=== PATIENT | male | born 1955 | race Caucasian/White ===

== ENCOUNTER 2020-09-11 07:52 | Observation (INO) | payer OTHER ==
[~2020-09-11] VITALS: Ht 175.3 cm; Wt 106.1 kg
[2020-09-11] MEDS ORDERED: METO100 PO (08:02)
[2020-09-11] MEDS ORDERED: ALLO300 PO (08:02)
[2020-09-11] MEDS ORDERED: Aspir 8181 MG PO (08:02)
[2020-09-11] MEDS ORDERED: EPLE25 PO (08:02)
[2020-09-11] MEDS ORDERED: Catapres0.2 MG PO (08:02)
[2020-09-11] MEDS ORDERED: GABA800 PO (08:02)
[2020-09-11] MEDS ORDERED: LISI20 PO (08:02)
[2020-09-11] MEDS ORDERED: METF500 PO (08:02)
[2020-09-11] MEDS ORDERED: TAMS.4ER PO (08:03)
[2020-09-11 08:17] LABS: BASOPHILS PERCENT AUTO 1 % (0-2); EOSINOPHILS ABSOLUTE AUTO 0.36 K/mm3 (0.00-0.68); EOSINOPHILS PERCENT AUTO 3 % (0-6); Hematocrit 45.3 % (37.0-53.0); Hemoglobin 15.5 g/dL (13.5-17.5); IMMATURE GRAN ABSOLUTE AUTO 0.06 K/mm3 (0.00-0.10); IMMATURE GRAN PERCENT AUTO 0 % (0-1); LYMPHOCYTES ABSOLUTE AUTO 2.08 K/mm3 (0.84-5.20); LYMPHOCYTES PERCENT AUTO 15 % (21-46); MONOCYTES ABSOLUTE AUTO 0.95 K/mm3 (0.16-1.47); MONOCYTES PERCENT AUTO 7 % (4-13); Mean Corpuscular HGB 32.2 pg (26.0-34.0); Mean Corpuscular HGB Conc 34.2 g/dL (31.5-36.5); Mean Corpuscular Volume 94 fL (80-100); Mean Platelet Volume 10.3 fL (9.1-12.4); NEUTROPHILS ABSOLUTE AUTO 10.15 K/mm3 (1.96-9.15); NEUTROPHILS PERCENT AUTO 74 % (41-73); Platelet Count 288 K/mm3 (150-400); RDW Standard Deviation 45.3 fL (35.1-46.3); Red Blood Cell Count 4.81 M/mm3 (4.30-5.90)
[2020-09-11 08:37] LABS: Alanine Aminotransfer (ALT/SGP 30 U/L (12-78); Albumin, Blood 3.9 g/dL (3.4-5.0); Albumin/Globulin Ratio 1.1 (0.8-1.8); Alk Phos 94 U/L (50-136); Anion Gap 3 mmol/L (6-16); Aspartate Aminotrans (AST/SGOT 15 U/L (12-37); Bilirubin, Total 0.4 mg/dL (0.1-1.0); Blood Urea Nitrogen 24 mg/dL (8-24); Bun/Creatinine Ratio 24.4 (12.0-20.0); CO2, Blood 31 mmol/L (21-32); Calcium, Blood 9.5 mg/dL (8.5-10.1); Chloride, Blood 103 mmol/L (98-108); Creatinine, Blood 0.99 mg/dL (0.60-1.20); Globulin, Blood 3.7 g/dL (2.2-4.0); Glomerular Filtration Rate >60 (60-); Glucose, Blood 155 mg/dL (70-99); Sodium, Blood 137 mmol/L (136-145); Total Protein, Blood 7.6 g/dL (6.4-8.2)
[2020-09-11 11:30] LABS: Source, Urine Clean Catch
[2020-09-11 11:37] LABS: Appearance, Urine Clear (Clear); Bilirubin, Urine Neg (Neg); Blood, Urine Neg (Neg); Color, Urine Yellow (P-Yellow); Glucose Qualitative, Urine Neg (Neg); Ketones, Urine Neg (Neg); Leukocyte Esterase, Urine Neg (Neg); Nitrite, Urine Neg (Neg); Protein, Urine Neg (Neg); Specific Gravity, Urine 1.015 (1.003-1.022); Urobilinogen, Urine NORM (Normal)
[2020-09-11 12:11] LABS: U Amphetamine Screen Not Detected; U Barbituate Screen Not Detected; U Benzodiazapine Screen Not Detected; U Buprenorphine Screen Not Detected; U Cannabinoids Screen Not Detected; U Cocaine Screen Not Detected; U Methadone Screen Not Detected; U Methamphetamine Screen Not Detected; U Opiates Screen Not Detected; U Oxycodone Screen Not Detected; U Phencyclidine Screen Not Detected; U Propoxyphene Screen Not Detected
--- NOTE | 2020-09-11 15:39 | NUR ---
DAUGHTER SPOKE WITH LEXA ON THE PHONE [phone] CALL IF ANYTHING IS NEEDED OR ANY CHANGES
--- NOTE | 2020-09-11 16:04 | NUR ---
SPOKE WITH MAHENDRA [phone]
--- NOTE | 2020-09-11 17:35 | NUR ---
SUMMARY PT ADMITTED FROM THE ER FOR CVA, PT ABLE TO STAND AND TRANSFER SELF FROM GURNEY TO THE BED, PT WITH R SIDE WEAKNESS, MORE NOTICEABLE IN THE ARM THAN IN THE LEG, PT OFTEN NEGLECTING THE R ARM, CAN MOVE IT IF HE THINKS ABOUT IT, PT HAS ALREADY WORKED WITH PT/OT TODAY, PT WITH DIFFICULTY FINDING HIS WORDS AT TIMES, THIS RN SPOKE WITH PT'S SPOUSE AND DAUGHTER ON THE PHONE, BOTH ARE WILLING TO WORK WITH DISCHARGE PLANNING TO GET THE PT HOME SAFELY POSSIBLE, CAMPUS RECRUITING COORDINATOR CONSULT PLACED, PT REMAINS WITH PERMISSIVE HYPERTENSION, NO COMPLAINTS, WILL CONTINUE TO MONITOR
[2020-09-12 05:09] LABS: BASOPHILS ABSOLUTE AUTO 0.11 K/mm3 (0.00-0.23); BASOPHILS PERCENT AUTO 1 % (0-2); EOSINOPHILS PERCENT AUTO 5 % (0-6); Hematocrit 42.9 % (37.0-53.0); Hemoglobin 14.8 g/dL (13.5-17.5); IMMATURE GRAN ABSOLUTE AUTO 0.03 K/mm3 (0.00-0.10); IMMATURE GRAN PERCENT AUTO 0 % (0-1); LYMPHOCYTES ABSOLUTE AUTO 2.34 K/mm3 (0.84-5.20); LYMPHOCYTES PERCENT AUTO 22 % (21-46); MONOCYTES ABSOLUTE AUTO 0.96 K/mm3 (0.16-1.47); MONOCYTES PERCENT AUTO 9 % (4-13); Mean Corpuscular HGB 32.5 pg (26.0-34.0); Mean Corpuscular HGB Conc 34.5 g/dL (31.5-36.5); Mean Corpuscular Volume 94 fL (80-100); Mean Platelet Volume 10.3 fL (9.1-12.4); NEUTROPHILS ABSOLUTE AUTO 6.49 K/mm3 (1.96-9.15); NEUTROPHILS PERCENT AUTO 62 % (41-73); Platelet Count 243 K/mm3 (150-400); RDW Standard Deviation 44.7 fL (35.1-46.3); Red Blood Cell Count 4.55 M/mm3 (4.30-5.90); White Blood Cell Count 10.43 K/mm3 (4.00-11.30)
[2020-09-12 05:42] LABS: Alanine Aminotransfer (ALT/SGP 29 U/L (12-78); Albumin, Blood 3.4 g/dL (3.4-5.0); Albumin/Globulin Ratio 1.1 (0.8-1.8); Alk Phos 76 U/L (50-136); Anion Gap 4 mmol/L (6-16); Aspartate Aminotrans (AST/SGOT 13 U/L (12-37); Bilirubin, Total 0.6 mg/dL (0.1-1.0); Blood Urea Nitrogen 18 mg/dL (8-24); Bun/Creatinine Ratio 17.8 (12.0-20.0); CHOL/HDL RATIO 6.6; CO2, Blood 27 mmol/L (21-32); Chloride, Blood 107 mmol/L (98-108); Cholesterol 172 mg/dL (50-200); Creatinine, Blood 1.01 mg/dL (0.60-1.20); Glomerular Filtration Rate >60 (60-); Glucose, Blood 122 mg/dL (70-99); HDL Cholesterol 26 mg/dL (>39); LDL/HDL RATIO 3.2; Low Density Lipoprotein Chol 83 mg/dL (0-110); Magnesium, Blood 2.1 mg/dL (1.6-2.4); Sodium, Blood 138 mmol/L (136-145); Total Protein, Blood 6.4 g/dL (6.4-8.2); Triglycerides 314 mg/dL (30-160); Very Low Density Lipoprot Chol 62 mg/dL (6-32)
--- NOTE | 2020-09-12 05:53 | NUR ---
SHIFT SUMMARY PT IS A 64 Y/O MALE, ADMITTED FOR CVA WIHT COME RESIDUAL R-SIDE WEAKNESS. HE IS A&O X 3, WITH MILD EXPRESSIVE APHASIA AND SLURRED SPEECH. NO C/O ACUTE PAIN, NAUSEA OR SOB. BP WAS ELEVATED IN THE 180-190S SYSTOLIC, THOUGH PER DR COFFMAN HIS HS ANTI-HYPERTENSIVES WERE HELD. TELE SHOWED NSR IN THE 60S. VITAL SIGNS OTHERWISE STABLE. NO ACUTE CHANGES IN PT CONDITION NOTED DURING THE NIGHT. WILL CONTINUE TO MONITOR AND TREAT PER EMAR UNTIL HAND OFF TO DAY SHIFT RN.
--- NOTE | 2020-09-12 17:07 | NUR ---
SUMMARY PT SITTING UP IN BED WATCHING TV, PT HAS BEEN PLEASANT AND COOPERATIVE WITH CARE, UP WITH MIN ASSIST, PT HAS WORKED WITH PT/OT/ST TODAY, PT REMAINS HYPERTENSIVE, MD AWARE, PT ABLE TO GET IN THE SHOWER WITH MIN ASSIST, PLAN TO DC TO [facility] TOMORROW TO HIS TRUCK IN ORDER TO WAIT FOR ANOTHER SENIOR WRITER TO ARRIVE, CARE MANAGEMENT WILL ARRANGE [facility] TOMORROW, PT REMAINS WITH R SIDE ARM WEAKNESS AND SLIGHTLY SLURRED SPEECH, NO COMPLAINTS, WILL CONTINUE TO MONITOR
--- NOTE | 2020-09-13 05:00 | NUR ---
SHIFT SUMMARY PT IS A 64 Y/O MALE, ADMITTED FOR CVA. PT HAS SOME VERY MILD R-SIDE WEAKNESS AND SPEECH APHASIA. A&O X 4, SBA IN THE ROOM. NO C/O ACUTE PAIN, NAUSEA OR SOB. BP WAS ELEVATED AT HS AT 193/107, BUT CAME DOWN TO 160/100 THIS AM. ALL OTHER VITALS STABLE. NO ACUTE CHANGES IN PT CONDITION NOTED DURING THE NIGHT. WILL CONTINUE TO MONITOR AND TREAT PER EMAR UNTIL HAND OFF TO DAY SHIFT RN.
[2020-09-13] MEDS ORDERED: Acetaminophen325 M1 PO (11:31)
[2020-09-13] MEDS ORDERED: AMOCLA875 PO (11:32)
[2020-09-13] MEDS ORDERED: ATOR80 PO (11:33)
[2020-09-13] MEDS ORDERED: FAMO20 PO (11:55)
[2020-09-13] MEDS ORDERED: Flonase 0.05% N16 GM (11:56)
[2020-09-13] MEDS ORDERED: HYDRA50 PO (11:58)
[2020-09-13] MEDS ORDERED: VISBIOME 112.51 EACH PO (11:59)
[2020-09-13] MEDS ORDERED: Nicoderm Cq1 EAC1 TOP (12:00)
[2020-09-13] MEDS ORDERED: ONDA4ODT MM (12:01)
--- NOTE | 2020-09-13 15:25 | NUR ---
DISCHARGE NOTE PT IS AOX4. PT IV REMOVED BY THIS RN PER DOCUMENTATION. PT ASSISTED INTO SCRUB CLOTHING BY OT. THIS RN ASSISTED PT INTO WHEELCHAIR. DC INSTRUCTIONS REVIEWED WITH PT WHO VERBALIZED UNDERSTANDING. PT PROVIDED WITH GOOD RX COUPONS FOR MEDICATIONS. BELONGINGS GATHERED FROM ROOM. PT HAS LEFT THE BUILDING WITH BELONGINGS PRESENT. PT IS LEAVING IN A [place], STOPPING AT [facility], THEN HEADING TO TRUCK AT [facility] TO SPEND THE NIGHT. NO REFERRALS PROVIDED DUE TO PT LIVING IN [place]. PT HAS LEFT THE BUILDING.
[2020-09-18 01:10] LABS: DRVVT 37.8 sec (0.0-47.0); LUPUS REFLEX INTERPRETATION Comment: (.); PT 11.2 sec (9.1-12.0); PT 1:1NP 10.8 sec (9.1-12.0); PTT-LA 43.1 sec (0.0-51.9); THROMBIN TIME 17.7 sec (0.0-23.0)
== END 2020-09-13 15:18 | disposition home health service (06) ==
LOC: ER 07:52 → MEDS 07:53 → ENPENDDIS 09-12 11:35 → MEDS 09-13 15:18
PROVIDERS: Emergency Medicine; ADMIT Family Medicine
DX: I63.81 Other cerebral infarction due to occlusion or stenosis of small artery (principal); R47.81 Slurred speech; R29.810 Facial weakness; G83.21 Monoplegia of upper limb affecting right dominant side; I10 Essential (primary) hypertension; J32.4 Chronic pansinusitis; E11.40 Type 2 diabetes mellitus with diabetic neuropathy, unspecified; F15.10 Other stimulant abuse, uncomplicated; M10.9 Gout, unspecified; N40.0 Benign prostatic hyperplasia without lower urinary tract symptoms; F17.210 Nicotine dependence, cigarettes, uncomplicated; Z79.82 Long term (current) use of aspirin; Z79.84 Long term (current) use of oral hypoglycemic drugs
CPT/HCPCS: 36415; 70450; 70496; 80053; 80061; 81003; 81240; 81241; 82947; 83090; 83735; 84484; 85025; 85300; 85303; 85306; 85610; 85611; 85613; 85651; 85670; 85732; 86038; 86147; 92507; 92523; 92610; 93005; 93010; 93306; 94760; 96372; 96374; 96375; 96376; 97110; 97116; 97162; 97166; 97530; 97535; 99285-25; A9270; G0378; J0360; J1650; J7030; Q9967